=== PATIENT | male | born 1970 | race Caucasian/White ===

== ENCOUNTER → 2017-06-24 07:23 | Outpatient (CLI) | payer OTHER, SELFPAY ==
[2017-06-24 10:01] LABS: Alanine Aminotransferase 36 U/L (12-78); Albumin Level 4.2 gm/dL (3.4-5.0); Albumin/Globulin Ratio 1.5 (1.1-1.8); Alkaline Phosphatase 81 U/L (46-116); Anion Gap 12.8 mEq/L (5-15); Aspartate Amino Transferase 16 U/L (15-37); Bilirubin,Total 0.5 mg/dL (0.2-1.0); Blood Urea Nitrogen 15 mg/dL (7-18); Carbon Dioxide 31 mmol/L (21.0-32.0); Chloride 103 mmol/L (98-107); Chol/HDL Ratio 4.6 (1-3.5); Cholesterol 215 mg/dL (140-200); Estimated Glomerular Filt Rate 65 ml/min (>60); GFR (African American) 79 ML/MIN (>60); Globulin 2.8 gm/dl (1.3-3.2); Glucose 85 mg/dL (74-106); HDL Cholesterol 47 mg/dL (27-67); LDL Cholesterol 142 mg/dL (0-130); Potassium 3.8 mmoL/L (3.5-5.1); Sodium 143 mmol/L (136-145); Triglycerides 132 mg/dL (30-200); VLDL Cholesterol 26 mg/dL (0-40)
== END ==
PROVIDERS: PCP Internal Medicine; Visit Provider Internal Medicine
DX: R03.0 Elevated blood-pressure reading, without diagnosis of hypertension
CPT/HCPCS: 36415; 80053; 80061

== ENCOUNTER → 2017-10-04 14:42 | Outpatient (CLI) | payer OTHER, SELFPAY ==
--- NOTE | 2017-10-04 14:47 | XR_ITS ---
XR hand RT min 3V Ordering Physician: Esteban Calderón Patient Age: 46 years: Male HISTORY: ITS.REASON: S/P FALL RT 3 4 FINGER PAIN AND SWELLING Fell one month ago with pain and swelling at the third and fourth digits persisting TECHNIQUE: 3 views right hand radiograph COMPARISON :None available. Next field FINDINGS Right hand intact with no fracture nor dislocation. Bones are well mineralized and joint spaces are well-maintained. . No fracture nor dislocation evident. There does appear to be some subtle swelling persistent about the PIP joint of the long finger more so than fourth finger which may reflect the prior or recent injury. The metacarpals intact carpals unremarkable. IMPRESSION: -------- No fracture nor dislocation evident. Suggestion subtle residual soft tissue swelling about PIP joint of third finger
== END ==
PROVIDERS: PCP Internal Medicine; Visit Provider Internal Medicine
DX: M79.644 Pain in right finger(s) (principal)
CPT/HCPCS: 73130

== ENCOUNTER → 2018-10-28 14:32 | Outpatient (CLI) | payer OTHER, SELFPAY ==
--- NOTE | 2018-10-28 14:46 | XR_ITS ---
XR acute abdomen series HISTORY: ITS.REASON: LLQ PAIN ORDERING PHYSICIAN: Esteban Calderón PATIENT AGE: 48 years COMPARISON: None TECHNIQUE: Upright view of the chest is performed along with upright and supine views of the abdomen and pelvis. FINDINGS: An upright view of the chest shows no acute cardiac or pulmonary pathology. The lungs are clear. Upright and supine views of the abdomen show an unremarkable bowel gas pattern. No intestinal obstruction or free air is evident. There are few small foci of increased density overlying the left kidney some of which may be due to small renal stones. This may be confirmed with CT. There is a faint opacity in the left lower pelvic region at 3 mm and could be due to a ureteral stone or overlying summation artifact. No acute bony findings. IMPRESSION: Questionable left nephrolithiasis and distal ureteral calculus. CT may confirm. Otherwise negative
[2018-10-28 15:05] LABS: Basophils % 0.2 % (0.1-2.0); Eosinophils # 0.1 K/mm3 (0.0-0.4); Eosinophils % 1.1 % (0.1-12.0); Hematocrit 46.6 % (42.0-52.0); Hemoglobin 15.3 g/dL (14.1-18.0); Lymphocytes # 1.4 K/mm3 (0.7-4.5); Mean Corpuscular HGB Conc 32.8 g/dL (31.8-35.4); Mean Corpuscular Hemoglobin 26.6 pg (27.0-31.2); Mean Corpuscular Volume 81.2 fl (80-94); Mean Platelet Volume 8.5 fl (7.4-10.4); Monocytes # 0.9 K/mm3 (0.1-1.0); Monocytes % 7.6 % (1.7-9.3); Neutrophils % 79.1 % (37.0-80.0); Platelet Count 199 K/mm3 (142-424); Red Blood Count 5.73 M/mm3 (4.60-6.20); Red Cell Distribution Width 13.1 % (11.5-17.5); White Blood Count 11.3 K/mm3 (4.8-10.8)
--- NOTE | 2018-10-28 16:26 | CT_ITS ---
CT abdomen pelvis wo con CLINICAL INDICATION: Left lower quadrant pain ITS.REASON: LLQ PAIN,KIDNEY STONE ORDERING PHYSICIAN: Esteban Calderón PATIENT AGE: 48 years COMPARISON: None TECHNIQUE: Contrast Used:None Oral Contrast: None Axial images obtained with sagittal and coronal reformats. All CT scans at the facility use one or more dose reduction, viz: automated exposure control, ma/kV adjustment per patient size (including targeted exams where dose is matched to indication, i.e. head), or iterative reconstruction technique. FINDINGS: Lower thorax: No acute finding The liver, spleen, adrenal glands, pancreas, gallbladder, and kidneys have an unremarkable unenhanced appearance. No renal or ureteral calculi. No intestinal obstruction or free air. No evidence of appendicitis. Diverticulosis involves the entire colon. There is focal thickening at the junction of the descending and sigmoid colon in the left lower quadrant with prominent stranding of paracolic fat consistent with diverticulitis. There are several prominent diverticula in this area. No abscess or free air evident. No pelvic mass or abnormal fluid collection apparent. No acute bony anomalies. IMPRESSION: 1. Acute diverticulitis at the junction of the descending and sigmoid colon in the left lower quadrant. No evidence of abscess or perforation. 2. No renal or ureteral calculi.
== END ==
PROVIDERS: PCP Internal Medicine; Visit Provider Internal Medicine
DX: R10.31 Right lower quadrant pain (principal)
CPT/HCPCS: 36415; 74021; 74176; 85025

== ENCOUNTER → 2018-12-03 13:56 | Outpatient (CLI) | payer OTHER, SELFPAY ==
--- NOTE | 2018-12-03 14:02 | XR_ITS ---
XR shoulder LT min 2V HISTORY: ITS.REASON: bicep rupture/ shoulder pain ORDERING PHYSICIAN: Will Loera MD PATIENT AGE: 48 years Comparison: None FINDINGS: No fracture or dislocation. No lytic or blastic change. There is normal mineralization. The joint spaces are well-preserved. No significant degenerative/arthritic changes. No erosive changes evident. IMPRESSION: Negative, no acute finding
== END ==
PROVIDERS: PCP Internal Medicine; Visit Provider Orthopaedic Surgery
DX: S46.212A Strain of muscle, fascia and tendon of other parts of biceps, left arm, initial encounter (principal)
CPT/HCPCS: 73030

== ENCOUNTER → 2019-06-29 15:04 | Outpatient (CLI) | payer BC, SELFPAY ==
--- NOTE | 2019-06-29 15:15 | ECG_ITS ---
APPROVED REPORT Exam: Resting ECG HR:73 bpm ECG Measurements Heart Rate 73 AXES UT 150 P 50 QRSd 86 QRS 33 QT 360 T 6 QTc 396 <Conclusion> Normal sinus rhythm Normal ECG Electronically signed by : Esteban Calderón, 06/29/2019 17:54:26
== END ==
PROVIDERS: PCP Internal Medicine; Visit Provider Internal Medicine
DX: I10 Essential (primary) hypertension (principal); E78.5 Hyperlipidemia, unspecified; Z82.49 Family history of ischemic heart disease and other diseases of the circulatory system
CPT/HCPCS: 93005

== ENCOUNTER → 2020-05-26 10:13 | Outpatient (CLI) | payer BC, SELFPAY ==
--- NOTE | 2020-05-26 10:18 | CT_ITS ---
PROCEDURE: CT ABDOMEN PELVIS WO CON CLINICAL INDICATION: RLQ PAIN low abd pain hx of diverticulitis COMPARISON: CT ABDPELWO CT abdomen pelvis wo con from 10/28/2018 TECHNIQUE: Axial images obtained with sagittal and coronal reformats. All CT scans at the facility use one or more dose reduction, viz: automated exposure control, ma/kV adjustment per patient size (including targeted exams where dose is matched to indication, i.e. head), or iterative reconstruction technique. FINDINGS: LOWER THORAX: No acute finding ABDOMEN & PELVIS: The liver, gallbladder, spleen, adrenal glands, pancreas, and kidneys have an unremarkable unenhanced appearance. No evidence of appendicitis. Colonic diverticulosis involves the descending and sigmoid colon. There is mild stranding of the pericolic fat in the mid aspect of the descending colon and in left lower quadrant at the proximal sigmoid colon with mild colonic thickening consistent with mild diverticulitis. No abscess or perforation apparent. The diverticulitis in the sigmoid colon is not near as extensive as a was on 10/28/2018.. There is mild amount of retained colonic feces in the rectum. No acute bony finding. IMPRESSION: Colonic diverticulosis with mild diverticulitis within the sigmoid colon and within the mid aspect of the descending colon. No abscess or perforation. Dictated by: Elroy Erazo MD 05/27/2020 10:10 Elroy Erazo MD in [place] 05/27/2020 10:10
== END ==
PROVIDERS: PCP Internal Medicine; Visit Provider Internal Medicine
DX: R10.31 Right lower quadrant pain
CPT/HCPCS: 74176

== ENCOUNTER → 2021-03-27 14:27 | Outpatient (CLI) | payer BC, SELFPAY ==
[2021-03-27 14:43] LABS: Basophils # 0.1 K/mm3 (0-0.2); Basophils % 1.4 % (0.1-2.0); Eosinophils # 0.1 K/mm3 (0.0-0.4); Eosinophils % 2.3 % (0.1-12.0); Hematocrit 48.2 % (42.0-52.0); Hemoglobin 16.7 g/dL (14.1-18.0); Lymphocytes # 2.1 K/mm3 (0.7-4.5); Lymphocytes % 37.3 % (10-50); Mean Corpuscular HGB Conc 34.7 g/dL (31.8-35.4); Mean Corpuscular Hemoglobin 28.9 pg (27.0-31.2); Mean Corpuscular Volume 83.2 fl (80-94); Mean Platelet Volume 9.5 fl (7.4-10.4); Monocytes # 0.4 K/mm3 (0.1-1.0); Monocytes % 7.5 % (1.7-9.3); Neutrophils # 2.9 K/mm3 (1.8-7.8); Neutrophils % 51.5 % (37.0-80.0); Platelet Count 277 K/mm3 (142-424); Red Cell Distribution Width 13.4 % (11.5-17.5); White Blood Count 5.6 K/mm3 (4.8-10.8)
[2021-03-27 15:44] LABS: Alanine Aminotransferase 28 U/L (12-78); Albumin Level 4.4 g/dl (3.5-5.0); Albumin/Globulin Ratio 1.7 (1.1-1.8); Alkaline Phosphatase 61 U/L (38-126); Anion Gap 10.6 mEq/L (5-15); Aspartate Amino Transferase 37 U/L (17-59); Bilirubin,Total 0.8 mg/dl (0.2-1.3); Blood Urea Nitrogen 15 mg/dl (9-20); Calcium 9.5 mg/dl (8.4-10.2); Carbon Dioxide 35 mmol/L (22.0-30.0); Chloride 98 mmol/L (98-107); Chol/HDL Ratio 3.8 (1-3.5); Cholesterol 179 mg/dl (140-200); Estimated Glomerular Filt Rate 90 ml/min (>60); GFR (African American) 109 ML/MIN (>60); Globulin 2.6 g/dL (1.3-3.2); Glucose 84 mg/dl (74-100); HDL Cholesterol 47 mg/dl (40-60); Potassium 4.6 mmoL/L (3.5-5.1); Sodium 139 mmol/L (136-145); Triglycerides 106 mg/dl (30-150); VLDL Cholesterol 21 mg/dL (0-40)
[2021-03-27 16:14] LABS: Prostate Specific Ag Screen 2.1 ng/ml (0.0-4.0)
== END ==
PROVIDERS: Visit Provider Internal Medicine
DX: I10 Essential (primary) hypertension (principal); E78.5 Hyperlipidemia, unspecified; K57.32 Diverticulitis of large intestine without perforation or abscess without bleeding; B35.1 Tinea unguium; Z80.42 Family history of malignant neoplasm of prostate; Z82.49 Family history of ischemic heart disease and other diseases of the circulatory system
CPT/HCPCS: 80053; 80061; 85025; G0103

== ENCOUNTER → 2021-04-25 10:48 | Outpatient (CLI) | payer BC, SELFPAY | PROVIDERS: Visit Provider Surgery | DX: Z01.812 Encounter for preprocedural laboratory examination (principal); Z11.52 Encounter for screening for COVID-19; Z12.11 Encounter for screening for malignant neoplasm of colon | CPT/HCPCS: C9803; U0003; U0005 ==

== ENCOUNTER 2021-04-27 12:08 | Day surgery (SDC) | payer BC, SELFPAY ==
[2021-04-24 12:24] VITALS: BMI 25.8
[2021-04-27 12:28] VITALS: BP 155/100; PULSE 116; RESP 18; TEMP 36.9; O2SAT 100
[2021-04-27 12:38] VITALS: O2SAT 100
--- NOTE | 2021-04-27 12:45 | HMH.ANESCL ---
[facility] Anesthesia Checklist - Structural Data Admitted From: Home Planned Operative Procedure/s: colonoscopy Consent for Planned Operative Procedure(s) Verified: Yes - Airway Assessment C-Spine Mobility Assessed: Yes TMJ Mobility Assessed: Yes Dentition: Good Dentition - Neurological Assessment Level of Consciousness: Awake, Alert, Appropriate - Anesthesia Plan Anesthesia Risk discussed: Yes Anesthesia Plan: Verified ASA Class: II Anesthesia Type: MAC [facility] History I have reviewed the patient's past medical history: Yes Medical History: Reports:: Gastroesophageal Reflux Disease(GERD), Hypertension Denies:: Cancer, Diabetes Mellitus Type 1, Diabetes Mellitus Type 2, Internal Pacemaker, MRSA, Seizures *Have you ever received a pneumonia vaccine?: No *Have you received a flu vaccine this season?: No Anesthesia experience/problems:: none Other Surgeries: No: Pacemaker Amputation: No Fractures: No - *Social History Last grade of school completed: Advanced degree Smoking Status: Never smoker Alcohol Intake: current Alcohol Intake Frequency:: holidays/special occasions only Substance Use Type: denies use *Occupational Status:: employed *Travel in the last 8 weeks: Inside the [facility] Family Hx:: Heart Attack, Hypertension
[2021-04-27 13:18] VITALS: BP 75/46; PULSE 89; RESP 20; TEMP 36.3; O2SAT 96
--- NOTE | 2021-04-27 13:22 | HMH.SCOPE ---
- Procedure: Date: 04/27/21 Patient Date of :: 1970 Procedure Performed:: Colonoscopy with polypectomy Indications:: Screening Diverticulosis Performing Provider:: Silvano Diez MD Referring Provider:: . Sedation:: Monitored anesthesia care Procedure:: After informed consent was obtained the patient was taken to the endoscopy suite. Sedation ensued after the patient was transferred to the left lateral decubitus position. Pulse, blood pressure, and oxygen saturation were monitored throughout the procedure. Digital rectal exam revealed no significant abnormality. The colonoscope was placed in position. The entire colon was evaluated. The colonoscope was carefully removed and the patient was transferred to recovery in stable condition. Please see findings and specimens below for detail. Findings:: Bowel preparation fair to moderate Fairly severe spasticity and lack of relaxation Severe diverticulosis (worse in sigmoid colon) Polyps (see specimens) Specimens:: Right colon polyp Large complex pedunculated polyp at 15 cm Recommendations:: Timing of repeat colonoscopy is pending pathology but will likely be around 1-2 years secondary to slightly-limiting bowel preparation, severe spasticity/lack of relaxation, and limitations in visualization due to angulation of severe diverticulosis. Complications:: No immediate Estimated blood obtained (mL): 1
[2021-04-27 13:28] VITALS: BP 104/58; PULSE 76; RESP 16; O2SAT 99
[2021-04-27 13:38] VITALS: BP 110/76; PULSE 75; RESP 16; O2SAT 98
[2021-04-27 13:54] VITALS: BP 128/56; PULSE 81; RESP 16; O2SAT 99
== END 2021-04-27 13:54 | disposition home or self-care (01) ==
LOC: OUTP 12:10
PROVIDERS: PCP Internal Medicine; Visit Provider Surgery
PROC: 0DJD8ZZ Inspection of Lower Intestinal Tract, Via Natural or Artificial Opening Endoscopic (ICD-10-PCS; CPT 45380; principal; 2021-04-27 14:30)
DX: Z12.11 Encounter for screening for malignant neoplasm of colon (principal); K57.32 Diverticulitis of large intestine without perforation or abscess without bleeding; K63.5 Polyp of colon; K21.9 Gastro-esophageal reflux disease without esophagitis; I10 Essential (primary) hypertension; Z79.899 Other long term (current) drug therapy; Z82.3 Family history of stroke; Z82.49 Family history of ischemic heart disease and other diseases of the circulatory system; Z88.0 Allergy status to penicillin
CPT/HCPCS: 45380

== ENCOUNTER 2021-08-12 13:23 | Emergency (ER) | payer BC, SELFPAY ==
[2021-08-12 14:25] VITALS: BP 0/0; PULSE 0; RESP 0; TEMP -17.7; TEMP 0
== END 2021-08-12 14:27 | disposition left against medical advice (07) ==
LOC: UTC 13:26
PROVIDERS: Emergency Provider Nurse Practitioner Family; PCP Internal Medicine
DX: Z03.89 Encounter for observation for other suspected diseases and conditions ruled out (principal); Z88.8 Allergy status to other drugs, medicaments and biological substances; Z53.21 Procedure and treatment not carried out due to patient leaving prior to being seen by health care provider

== ENCOUNTER → 2021-08-12 13:48 | Outpatient (CLI) | payer BC, SELFPAY | PROVIDERS: PCP Internal Medicine; Visit Provider Nurse Practitioner Family | DX: Z11.52 Encounter for screening for COVID-19 (principal) | CPT/HCPCS: C9803; U0003; U0005 ==

== ENCOUNTER → 2021-09-12 12:40 | Outpatient (CLI) | payer BC, SELFPAY ==
[2021-09-12 14:36] LABS: Alanine Aminotransferase 36 U/L (12-78); Albumin Level 4.3 g/dl (3.5-5.0); Albumin/Globulin Ratio 1.7 (1.1-1.8); Alkaline Phosphatase 75 U/L (38-126); Anion Gap 13.1 mEq/L (5-15); Aspartate Amino Transferase 37 U/L (17-59); Bilirubin,Total 1.1 mg/dl (0.2-1.3); Blood Urea Nitrogen 23 mg/dl (9-20); Calcium 9.5 mg/dl (8.4-10.2); Carbon Dioxide 32 mmol/L (22.0-30.0); Chloride 98 mmol/L (98-107); Chol/HDL Ratio 4.8 (1-3.5); Cholesterol 191 mg/dl (140-200); Estimated Glomerular Filt Rate 79 ml/min (>60); GFR (African American) 96 ML/MIN (>60); Globulin 2.6 g/dL (1.3-3.2); Glucose 79 mg/dl (74-100); HDL Cholesterol 40 mg/dl (40-60); Potassium 4.1 mmoL/L (3.5-5.1); Sodium 139 mmol/L (136-145); Total Protein,Serum 6.9 g/dl (6.3-8.2); Triglycerides 130 mg/dl (30-150); VLDL Cholesterol 26 mg/dL (0-40)
[2021-09-12 14:47] LABS: Direct LDL Cholesterol 118.28 mg/dL (100-129)
== END ==
PROVIDERS: PCP Internal Medicine; Visit Provider Internal Medicine
DX: I10 Essential (primary) hypertension (principal); E78.5 Hyperlipidemia, unspecified; L70.0 Acne vulgaris
CPT/HCPCS: 80053; 80061

== ENCOUNTER → 2022-03-16 12:31 | Outpatient (CLI) | payer BC, SELFPAY ==
[2022-03-16 15:24] LABS: Alanine Aminotransferase 35 U/L (12-78); Albumin Level 4.5 g/dl (3.5-5.0); Albumin/Globulin Ratio 1.9 (1.1-1.8); Alkaline Phosphatase 90 U/L (38-126); Anion Gap 16.2 mEq/L (5-15); Aspartate Amino Transferase 38 U/L (17-59); Bilirubin,Total 0.7 mg/dl (0.2-1.3); Blood Urea Nitrogen 24 mg/dl (9-20); Calcium 9.8 mg/dl (8.4-10.2); Carbon Dioxide 32 mmol/L (22.0-30.0); Chloride 96 mmol/L (98-107); Chol/HDL Ratio 3.6 (1-3.5); Cholesterol 160 mg/dl (140-200); Estimated Glomerular Filt Rate 79 ml/min (>60); GFR (African American) 96 ML/MIN (>60); Globulin 2.4 g/dL (1.3-3.2); Glucose 71 mg/dl (74-100); HDL Cholesterol 44 mg/dl (40-60); Potassium 4.2 mmoL/L (3.5-5.1); Sodium 140 mmol/L (136-145); Total Protein,Serum 6.9 g/dl (6.3-8.2); Triglycerides 84 mg/dl (30-150); VLDL Cholesterol 17 mg/dL (0-40)
[2022-03-16 15:40] LABS: Direct LDL Cholesterol 95.63 mg/dL (100-129)
[2022-03-16 15:54] LABS: Prostate Specific Ag Screen 2.2 ng/ml (0.0-4.0)
== END ==
PROVIDERS: PCP Internal Medicine; Visit Provider Internal Medicine
DX: E78.5 Hyperlipidemia, unspecified (principal); Z82.49 Family history of ischemic heart disease and other diseases of the circulatory system; Z80.42 Family history of malignant neoplasm of prostate; Z12.5 Encounter for screening for malignant neoplasm of prostate
CPT/HCPCS: 80053; 80061; G0103

== ENCOUNTER → 2022-09-19 11:01 | Outpatient (CLI) | payer BC, SELFPAY ==
[2022-09-19 14:15] LABS: Basophils % 0.6 % (0.1-2.0); Eosinophils # 0.2 K/mm3 (0.0-0.4); Hematocrit 49.4 % (42.0-52.0); Hemoglobin 16.8 g/dL (14.1-18.0); Lymphocytes # 2.3 K/mm3 (0.7-4.5); Lymphocytes % 41.9 % (10-50); Mean Corpuscular Volume 85.2 fl (80-94); Mean Platelet Volume 9.9 fl (7.4-10.4); Monocytes # 0.5 K/mm3 (0.1-1.0); Monocytes % 8.3 % (1.7-9.3); Neutrophils # 2.5 K/mm3 (1.8-7.8); Neutrophils % 46.2 % (37.0-80.0); Platelet Count 240 K/mm3 (142-424); Red Cell Distribution Width 13.2 % (11.5-17.5); White Blood Count 5.5 K/mm3 (4.8-10.8)
[2022-09-19 14:57] LABS: Alanine Aminotransferase 50 U/L (12-78); Albumin Level 4.6 g/dl (3.5-5.0); Albumin/Globulin Ratio 1.7 (1.1-1.8); Alkaline Phosphatase 47 U/L (38-126); Anion Gap 20.3 mEq/L (5-15); Aspartate Amino Transferase 79 U/L (17-59); Bilirubin,Total 1.6 mg/dl (0.2-1.3); Blood Urea Nitrogen 24 mg/dl (9-20); Calcium 8.8 mg/dl (8.4-10.2); Carbon Dioxide 27 mmol/L (22.0-30.0); Chloride 94 mmol/L (98-107); Cholesterol 157 mg/dl (140-200); Estimated Glomerular Filt Rate 89 ml/min (>60); GFR (African American) 108 ML/MIN (>60); Globulin 2.7 g/dL (1.3-3.2); Glucose 67 mg/dl (74-100); HDL Cholesterol 39 mg/dl (40-60); Potassium 4.3 mmoL/L (3.5-5.1); Sodium 137 mmol/L (136-145); Total Protein,Serum 7.3 g/dl (6.3-8.2); Triglycerides 116 mg/dl (30-150); VLDL Cholesterol 23 mg/dL (0-40)
[2022-09-19 15:08] LABS: Direct LDL Cholesterol 98.41 mg/dL (100-129)
== END ==
PROVIDERS: PCP Internal Medicine; Visit Provider Internal Medicine
DX: I10 Essential (primary) hypertension (principal); E78.5 Hyperlipidemia, unspecified; K57.90 Diverticulosis of intestine, part unspecified, without perforation or abscess without bleeding; Z82.49 Family history of ischemic heart disease and other diseases of the circulatory system; Z80.42 Family history of malignant neoplasm of prostate
CPT/HCPCS: 80053; 80061; 85025

== ENCOUNTER → 2023-03-27 13:39 | Outpatient (CLI) | payer BC, SELFPAY ==
[2023-03-27 16:03] LABS: Alanine Aminotransferase 51 U/L (12-78); Albumin Level 4.6 g/dl (3.5-5.0); Albumin/Globulin Ratio 1.6 (1.1-1.8); Alkaline Phosphatase 57 U/L (38-126); Anion Gap 14.4 mEq/L (5-15); Aspartate Amino Transferase 45 U/L (17-59); Bilirubin,Total 1.3 mg/dl (0.2-1.3); Blood Urea Nitrogen 24 mg/dl (9-20); Calcium 9.6 mg/dl (8.4-10.2); Carbon Dioxide 32 mmol/L (22.0-30.0); Chloride 97 mmol/L (98-107); Chol/HDL Ratio 4.3 (1-3.5); Cholesterol 180 mg/dl (140-200); Estimated Glomerular Filt Rate 79 ml/min (>60); GFR (African American) 95 ML/MIN (>60); Globulin 2.8 g/dL (1.3-3.2); Glucose 74 mg/dl (74-100); HDL Cholesterol 42 mg/dl (40-60); Potassium 4.4 mmoL/L (3.5-5.1); Sodium 139 mmol/L (136-145); Total Protein,Serum 7.4 g/dl (6.3-8.2); Triglycerides 114 mg/dl (30-150); VLDL Cholesterol 23 mg/dL (0-40)
[2023-03-27 16:14] LABS: Direct LDL Cholesterol 109.32 mg/dL (100-129)
[2023-03-27 16:33] LABS: Prostate Specific Ag Screen 2.2 ng/ml (0.0-4.0)
== END ==
PROVIDERS: PCP Internal Medicine; Visit Provider Internal Medicine
DX: I10 Essential (primary) hypertension (principal); E78.5 Hyperlipidemia, unspecified; Z12.5 Encounter for screening for malignant neoplasm of prostate
CPT/HCPCS: 80053; 80061; G0103

== ENCOUNTER 2023-05-05 11:19 | Emergency (ER) | payer BC, SELFPAY ==
[2023-05-05 11:25] VITALS: BP 119/74; PULSE 79; RESP 20; TEMP 37; O2SAT 98; BMI 25.7
--- NOTE | 2023-05-05 11:36 | EXP.UTC ---
Discharge Plan Disposition Patient Disposition: Home, Self-Care Condition: Good Prescriptions Prescriptions: New benzonatate 100 mg capsule 100 mg PO TID PRN (Reason: cough) Qty: 30 0RF methylprednisolone [Medrol (Satya)] 4 mg tablets,dose pack See Rx Instructions .Route .COMPLEX 6 Days Qty: 21 0RF Rx Instructions: taper pack; guaifenesin [Mucinex] 600 mg tablet extended release 12hr 1,200 mg PO BID PRN (Reason: cough) Qty: 20 0RF azithromycin [Zithromax Z-Satya] 250 mg tablet See Rx Instructions .ROUTE .COMPLEX 5 Days Qty: 6 0RF Rx Instructions: For 250 mg dose pack: take 500 mg today (day 1), then 250 mg for 4 days (days 2-5) No Action atorvastatin 20 mg tablet 20 mg PO HS hydrochlorothiazide 12.5 MG capsule 12.5 mg PO DAILY Referrals Follow up/Referrals: Esteban Calderón MD [Primary Care Provider] - See instructions Activity Restrictions/Add. Instructions Additional Instructions/Restrictions: Start antibiotic today. Be sure to complete entire prescription even if feeling better Monitor temp. Tylenol every 4 hours as needed and / or ibuprofen every 6 hours as needed ( As long as your primary care physician has told you that it ok to take both. For fever/aches/pains ER if no less than 101 despite Tylenol or Motrin Humidifier/vaporizer or hot steamy shower Mucinex during the day for your cough and cough suppressant only at night. Be sure to drink lots of water. *Tessalon Perles will not cause drowsiness but use at bedtime to help stop cough so that you may get some rest. *Start steroid today. Helps with inflammation therefore, cough and wheezing. Follow directions on the package. Reviewed side effects. Patient reports taking them before. Follow up IMMEDIATELY for new or worsening of symptoms OR no noticeable improvement over the next 48-72 hours. 911 immediately for any life threatening symptoms such as chest pain or difficulty breathing Clinical Impressions Clinical Impression: Sinusitis Qualifiers: Sinusitis location: unspecified location Chronicity: unspecified Qualified Code(s): J32.9 - Chronic sinusitis, unspecified Instructions Patient Instructions: Sinusitis, Cough, DI for Sinusitis Discharge ED Provider: Ghazal Cruz [facility] General Stated complaint: cough Mode of Arrival: Ambulatory Source of Information: Patient Limitations: No Limitations Time Seen by Provider: 05/05/23 11:37 Description of Symptoms (Recalled from Triage Doc. by RN): PATIENT C/O PRODUCTIVE COUGH AND CHEST CONGESTION X 4 DAYS HEENT Symptoms (Recalled from RN notes): No Resp Symptoms (Recalled from RN notes): Yes Skin Symptoms (Recalled from RN notes): No MS Symptoms (Recalled from RN notes): No Functional Status (Recalled from RN notes): WNL History of Present Illness Provider Complaint: Patient states that he has been having sinus congestion and pressure along with cough that is productive at times and chest congestion States that the cough kept him up most of last night so he came in today to get checked Related Data Home Medications Medication Instructions Recorded Confirmed hydrochlorothiazide 12.5 mg capsule 12.5 mg PO DAILY bp 04/27/21 05/05/23 atorvastatin 20 mg tablet 20 mg PO HS 01/11/23 05/05/23 Previous Rx's Medication Instructions Recorded azithromycin 250 mg tablet See Rx Instructions PO .COMPLEX 5 05/05/23 (Zithromax Z-Satya) days #6 tabs benzonatate 100 mg capsule 100 mg PO TID PRN cough #30 caps 05/05/23 guaifenesin 600 mg tablet, 1,200 mg PO BID PRN cough #20 tabs 05/05/23 extended release 12 hr (Mucinex) methylprednisolone 4 mg tablets in See Rx Instructions .Route 05/05/23 a dose pack (Medrol (Satya)) .COMPLEX 6 days #21 tabs Allergies Allergy/AdvReac Type Severity Reaction Status Date / Time penicillin G AdvReac Verified 01/11/23 09:01 Worker's Comp Is this a Worker's Comp case?: No [facility] Disclaimer: T
[2023-05-05 11:42] VITALS: BP 119/74; PULSE 79; RESP 20; TEMP 37; O2SAT 98
== END 2023-05-05 11:45 | disposition home or self-care (01) ==
PROVIDERS: Emergency Provider Nurse Practitioner; PCP Internal Medicine
DX: J01.90 Acute sinusitis, unspecified (principal); R05.9 Cough, unspecified; R09.89 Other specified symptoms and signs involving the circulatory and respiratory systems; E78.5 Hyperlipidemia, unspecified; I10 Essential (primary) hypertension
CPT/HCPCS: 99212; 99214; G0463

== ENCOUNTER 2023-09-25 13:26 | Outpatient (CLI) | payer BC, SELFPAY ==
[2023-09-25 14:25] LABS: Alanine Aminotransferase 38 U/L (12-78); Albumin Level 4.2 g/dl (3.5-5.0); Albumin/Globulin Ratio 1.6 (1.1-1.8); Alkaline Phosphatase 67 U/L (38-126); Anion Gap 13.3 mEq/L (5-15); Aspartate Amino Transferase 35 U/L (17-59); Bilirubin,Total 0.6 mg/dl (0.2-1.3); Blood Urea Nitrogen 18 mg/dl (9-20); Calcium 9.2 mg/dl (8.4-10.2); Carbon Dioxide 32 mmol/L (22.0-30.0); Chloride 100 mmol/L (98-107); Chol/HDL Ratio 3.5 (1-3.5); Cholesterol 160 mg/dl (140-200); Estimated Glomerular Filt Rate 79 ml/min (>60); GFR (African American) 95 ML/MIN (>60); Globulin 2.6 g/dL (1.3-3.2); Glucose 75 mg/dl (74-100); HDL Cholesterol 46 mg/dl (40-60); Potassium 4.3 mmoL/L (3.5-5.1); Sodium 141 mmol/L (136-145); Total Protein,Serum 6.8 g/dl (6.3-8.2); Triglycerides 67 mg/dl (30-150); VLDL Cholesterol 13 mg/dL (0-40)
[2023-09-25 14:37] LABS: Direct LDL Cholesterol 100.05 mg/dL (100-129)
== END 2023-09-25 23:59 | disposition home or self-care (01) ==
LOC: LAB.DROPOF 13:27
PROVIDERS: PCP Internal Medicine; Visit Provider Internal Medicine
DX: I10 Essential (primary) hypertension (principal); E78.5 Hyperlipidemia, unspecified; K21.9 Gastro-esophageal reflux disease without esophagitis; K57.90 Diverticulosis of intestine, part unspecified, without perforation or abscess without bleeding; L30.9 Dermatitis, unspecified; Z12.5 Encounter for screening for malignant neoplasm of prostate
CPT/HCPCS: 80053; 80061

== ENCOUNTER 2024-03-30 13:54 | Outpatient (CLI) | payer BC, SELFPAY ==
[2024-03-30 12:31] LABS: Basophils # 0.1 K/mm3 (0-0.2); Basophils % 1.4 % (0.1-2.0); Eosinophils # 0.2 K/mm3 (0.0-0.4); Eosinophils % 2.7 % (0.1-12.0); Hematocrit 47.4 % (42.0-52.0); Hemoglobin 16.4 g/dL (14.1-18.0); Lymphocytes # 2.4 K/mm3 (0.7-4.5); Lymphocytes % 40.1 % (10-50); Mean Corpuscular HGB Conc 34.7 g/dL (31.8-35.4); Mean Corpuscular Hemoglobin 29.1 pg (27.0-31.2); Mean Corpuscular Volume 83.9 fl (80-94); Mean Platelet Volume 8.9 fl (7.4-10.4); Monocytes # 0.5 K/mm3 (0.1-1.0); Monocytes % 8.6 % (1.7-9.3); Neutrophils # 2.8 K/mm3 (1.8-7.8); Neutrophils % 47.3 % (37.0-80.0); Platelet Count 234 K/mm3 (142-424); Red Blood Count 5.64 M/mm3 (4.60-6.20); Red Cell Distribution Width 13.6 % (11.5-17.5); White Blood Count 5.9 K/mm3 (4.8-10.8)
[2024-03-30 12:58] LABS: Albumin Level 4.3 g/dl (3.5-5.0); Chloride 103 mmol/L (98-107); Potassium 4.3 mmoL/L (3.5-5.1); Sodium 141 mmol/L (136-145)
[2024-03-30 13:00] LABS: Alanine Aminotransferase 31 U/L (12-78); Aspartate Amino Transferase 34 U/L (17-59); Blood Urea Nitrogen 25 mg/dl (9-20); Estimated Glomerular Filt Rate 78 ml/min (>60); GFR (African American) 95 ML/MIN (>60)
[2024-03-30 13:01] LABS: Alkaline Phosphatase 64 U/L (38-126); Anion Gap 12.3 mEq/L (5-15); Bilirubin,Total 0.6 mg/dl (0.2-1.3); Calcium 9.1 mg/dl (8.4-10.2); Carbon Dioxide 30 mmol/L (22.0-30.0); Chol/HDL Ratio 3.9 (1-3.5); Cholesterol 159 mg/dl (140-200); Globulin 2.2 g/dL (1.3-3.2); Glucose 92 mg/dl (74-100); HDL Cholesterol 41 mg/dl (40-60); Total Protein,Serum 6.5 g/dl (6.3-8.2); Triglycerides 103 mg/dl (30-150); VLDL Cholesterol 21 mg/dL (0-40)
[2024-03-30 13:12] LABS: Direct LDL Cholesterol 91.95 mg/dL (100-129)
[2024-03-30 15:55] LABS: Prostate Specific Ag Screen 2.6 ng/ml (0.0-4.0)
== END 2024-03-30 23:59 | disposition home or self-care (01) ==
LOC: LAB.DROPOF 13:55
PROVIDERS: PCP Internal Medicine; Visit Provider Internal Medicine
DX: E78.5 Hyperlipidemia, unspecified (principal); I10 Essential (primary) hypertension; Z12.5 Encounter for screening for malignant neoplasm of prostate
CPT/HCPCS: 80053; 80061; 85025; G0103

== ENCOUNTER 2024-09-28 09:55 | Outpatient (CLI) | payer BC, SELFPAY ==
[2024-09-28 20:34] LABS: Alanine Aminotransferase 31 U/L (12-78); Albumin Level 4.3 g/dl (3.5-5.0); Alkaline Phosphatase 68 U/L (38-126); Anion Gap 6.4 mEq/L (5-15); Aspartate Amino Transferase 31 U/L (17-59); Bilirubin,Total 0.7 mg/dl (0.2-1.3); Blood Urea Nitrogen 21 mg/dl (9-20); Calcium 9.6 mg/dl (8.4-10.2); Carbon Dioxide 31 mmol/L (22.0-30.0); Chloride 101 mmol/L (98-107); Chol/HDL Ratio 3.5 (1-3.5); Cholesterol 138 mg/dl (140-200); Estimated Glomerular Filt Rate 89 ml/min (>60); GFR (African American) 107 ML/MIN (>60); Globulin 2.1 g/dL (1.3-3.2); Glucose 67 mg/dl (74-100); HDL Cholesterol 40 mg/dl (40-60); Potassium 4.4 mmoL/L (3.5-5.1); Sodium 134 mmol/L (136-145); Total Protein,Serum 6.4 g/dl (6.3-8.2); Triglycerides 80 mg/dl (30-150); VLDL Cholesterol 16 mg/dL (0-40)
[2024-09-28 20:45] LABS: Direct LDL Cholesterol 83.36 mg/dL (100-129)
== END 2024-09-28 23:59 | disposition home or self-care (01) ==
LOC: LAB.DROPOF 22:27
PROVIDERS: PCP Internal Medicine; Visit Provider Internal Medicine
DX: E78.5 Hyperlipidemia, unspecified (principal); I10 Essential (primary) hypertension
CPT/HCPCS: 80053; 80061

== ENCOUNTER 2024-11-12 16:31 | Outpatient (CLI) | payer BC, SELFPAY ==
--- NOTE | 2024-11-12 16:00 | CT_ITS ---
PROCEDURE INFORMATION: Exam: CT Head Without Contrast Exam date and time: 11/12/2024 4:33 PM Age: 54 years old Clinical indication: Psychosis or psychotic disorder; Physiological condition; Additional info: Headaches, delirium, nausea /vomiting. Episodes of thinking weird thoughts that didn't feel like his own TECHNIQUE: Imaging protocol: Computed tomography of the head without contrast. Radiation optimization: All CT scans at this facility use at least one of these dose optimization techniques: automated exposure control; mA and/or kV adjustment per patient size (includes targeted exams where dose is matched to clinical indication); or iterative reconstruction. COMPARISON: No relevant prior studies available. FINDINGS: Brain: No evidence for acute transcortical infarct. No mass effect or midline shift. No extra-axial collection. No acute intracranial hemorrhage. Basal cisterns are patent. Cerebral ventricles: No ventriculomegaly. Paranasal sinuses: Visualized sinuses are unremarkable. No fluid levels. Mastoid air cells: Visualized mastoid air cells are well aerated. Bones: Unremarkable. No acute fracture. Soft tissues: Unremarkable. IMPRESSION: No evidence for acute transcortical infarct, acute intracranial hemorrhage, or mass effect.
[2024-11-12 16:31] LABS: Hematocrit 49.4 % (42.0-52.0); Hemoglobin 16.7 g/dL (14.1-18.0); Immature Granulocytes % 0.1 %; Mean Corpuscular HGB Conc 33.8 g/dL (31.8-35.4); Mean Corpuscular Hemoglobin 28.3 pg (27.0-31.2); Mean Corpuscular Volume 83.7 fl (80-94); Nucleated Red Blood Cells % 0 %; Platelet Count 227 K/mm3 (142-424); Red Blood Count 5.90 M/mm3 (4.60-6.20); Red Cell Distribution Width-SD 39.4 fL; White Blood Count 8.2 K/mm3 (4.8-10.8)
[2024-11-12 16:46] LABS: Magnesium 2.1 mg/dl (1.6-2.3)
[2024-11-12 16:53] LABS: Alanine Aminotransferase 26 U/L (12-78); Albumin Level 4.9 g/dl (3.5-5.0); Albumin/Globulin Ratio 1.9 (1.1-1.8); Alkaline Phosphatase 70 U/L (38-126); Anion Gap 14.4 mEq/L (5-15); Aspartate Amino Transferase 31 U/L (17-59); Bilirubin,Total 1.4 mg/dl (0.2-1.3); Blood Urea Nitrogen 19 mg/dl (9-20); Calcium 9.9 mg/dl (8.4-10.2); Carbon Dioxide 31 mmol/L (22.0-30.0); Chloride 94 mmol/L (98-107); Creatinine,Serum 0.90 mg/dl (0.66-1.25); Estimated Glomerular Filt Rate 88 ml/min (>60); GFR (African American) 107 ML/MIN (>60); Globulin 2.6 g/dL (1.3-3.2); Glucose 89 mg/dl (74-100); Potassium 4.4 mmoL/L (3.5-5.1); Sodium 135 mmol/L (136-145); Total Protein,Serum 7.5 g/dl (6.3-8.2)
[2024-11-12 17:05] LABS: Troponin I < 0.01 ng/ml (0.00-0.034)
[2024-11-12 17:19] LABS: Thyroid Stimulating Hormone 1.42 uIU/mL (0.465-4.68)
== END 2024-11-12 23:59 | disposition home or self-care (01) ==
LOC: RAD 16:31
PROVIDERS: PCP Internal Medicine; Visit Provider Internal Medicine
DX: I10 Essential (primary) hypertension (principal); R41.0 Disorientation, unspecified; R07.89 Other chest pain; R00.2 Palpitations; R51.9 Headache, unspecified
CPT/HCPCS: 70450; 80053; 83735; 84443; 84484; 85025; 85651

== ENCOUNTER → 2024-11-16 07:20 | Outpatient (CLI) | payer BC, SELFPAY | LOC: SL 07:20 | PROVIDERS: PCP Internal Medicine; Visit Provider Internal Medicine | DX: G47.33 Obstructive sleep apnea (adult) (pediatric) (principal); R53.83 Other fatigue | CPT/HCPCS: G0399 ==

== ENCOUNTER 2025-03-29 11:10 | Outpatient (CLI) | payer BC, SELFPAY ==
[2025-03-29 16:40] LABS: Hematocrit 50.5 % (42.0-52.0); Hemoglobin 16.8 g/dL (14.1-18.0); Immature Granulocytes % 0.2 %; Mean Corpuscular HGB Conc 33.3 g/dL (31.8-35.4); Mean Corpuscular Hemoglobin 28.4 pg (27.0-31.2); Mean Corpuscular Volume 85.4 fl (80-94); Nucleated Red Blood Cells % 0 %; Platelet Count 256 K/mm3 (142-424); Red Blood Count 5.91 M/mm3 (4.60-6.20); Red Cell Distribution Width-SD 41.1 fL; White Blood Count 6.3 K/mm3 (4.8-10.8)
[2025-03-29 17:29] LABS: Albumin Level 4.6 g/dl (3.5-5.0); Chloride 97 mmol/L (98-107)
[2025-03-29 17:30] LABS: Potassium 4.8 mmoL/L (3.5-5.1); Sodium 138 mmol/L (136-145)
[2025-03-29 17:32] LABS: Alanine Aminotransferase 51 U/L (12-78); Albumin/Globulin Ratio 1.7 (1.1-1.8); Anion Gap 11.8 mEq/L (5-15); Aspartate Amino Transferase 42 U/L (17-59); Blood Urea Nitrogen 14 mg/dl (9-20); Carbon Dioxide 34 mmol/L (22.0-30.0); Creatinine,Serum 0.90 mg/dl (0.66-1.25); Estimated Glomerular Filt Rate 88 ml/min (>60); GFR (African American) 107 ML/MIN (>60); Globulin 2.7 g/dL (1.3-3.2); Total Protein,Serum 7.3 g/dl (6.3-8.2)
[2025-03-29 17:33] LABS: Alkaline Phosphatase 80 U/L (38-126); Bilirubin,Total 0.9 mg/dl (0.2-1.3); Calcium 9.5 mg/dl (8.4-10.2); Cholesterol 180 mg/dl (140-200); Glucose 67 mg/dl (74-100); HDL Cholesterol 50 mg/dl (40-60); Triglycerides 95 mg/dl (30-150)
== END 2025-03-29 23:59 ==
LOC: LAB.DROPOF 03-30 09:41
PROVIDERS: PCP Internal Medicine; Visit Provider Internal Medicine
DX: E78.5 Hyperlipidemia, unspecified (principal); I10 Essential (primary) hypertension
CPT/HCPCS: 80053; 80061; 85025